=== PATIENT | female | born 1965 | race Hispanic/Latino ===

== ENCOUNTER 2017-09-22 09:39 | Outpatient (CLI) | payer OTHER ==
--- NOTE | 2017-09-22 11:12 | Magnetic Resonance Report ---
MRI BRAIN WITHOUT CONTRAST INDICATION: Sensorineural hearing. COMPARISON: None similar at this institution. FINDINGS: Noncontrast multiplanar and multisequence MRI of the brain demonstrates normal ventricles. Mild bifrontal sulcal prominence/enlargement extending towards the vertex, though age-appropriate. No acute infarct, hemorrhage, mass effect or midline shift. A small FLAIR and T2 weighted hyperintensity along the right superior frontal gyrus. No abnormal extra-axial masses or fluid collections. Normal major intracranial vascular flow voids. Normal posterior fossa structures with symmetric seventh and eighth nerve complexes. Symmetric, grossly unremarkable eye globes. Clear paranasal sinuses and mastoid air cells. Leftward nasal septal bowing. Normal midline structures without evidence of Chiari malformation. CONCLUSION: No acute intracranial MRI abnormality, as described. Thank you for the opportunity to participate in this patient's care.
== END 2017-09-22 09:40 | disposition home or self-care (01) ==
LOC: MRI 09:39
PROVIDERS: ATTEND Otolaryngology
DX: H90.42 Sensorineural hearing loss, unilateral, left ear, with unrestricted hearing on the contralateral side (principal)
CPT/HCPCS: 70551